=== PATIENT | female | born 1980 | race Caucasian/White ===

== ENCOUNTER 2016-07-26 09:34 | Emergency (ER) | payer MEDICAID ==
[~2016-07-26] VITALS: Ht 154.9 cm; Wt 88.5 kg
[2016-07-26 09:40] VITALS: BP 165/104
== END 2016-07-26 12:45 | disposition home or self-care (01) ==
LOC: ED 09:34
DX: S40.862A Insect bite (nonvenomous) of left upper arm, initial encounter (principal); S30.860A Insect bite (nonvenomous) of lower back and pelvis, initial encounter; I10 Essential (primary) hypertension; Z79.01 Long term (current) use of anticoagulants; W57.XXXA Bitten or stung by nonvenomous insect and other nonvenomous arthropods, initial encounter; Y93.89 Activity, other specified; Y99.8 Other external cause status; Y92.89 Other specified places as the place of occurrence of the external cause

== ENCOUNTER 2016-09-08 12:01 | Emergency (ER) | payer MEDICAID ==
[~2016-09-08] VITALS: Ht 154.9 cm; Wt 89.6 kg
[2016-09-08 12:11] VITALS: BP 163/93
== END 2016-09-08 14:01 | disposition home or self-care (01) ==
LOC: ED 12:01
DX: S91.332A Puncture wound without foreign body, left foot, initial encounter (principal); I10 Essential (primary) hypertension; Z79.899 Other long term (current) drug therapy; X58.XXXA Exposure to other specified factors, initial encounter; Y93.89 Activity, other specified; Y99.8 Other external cause status; Y92.89 Other specified places as the place of occurrence of the external cause
CPT/HCPCS: 90715

== ENCOUNTER 2016-09-26 16:17 | Emergency (ER) | payer MEDICAID ==
[2016-09-26 16:29] VITALS: BP 156/103
== END 2016-09-26 18:02 | disposition home or self-care (01) ==
LOC: ED 16:17
DX: S39.012A Strain of muscle, fascia and tendon of lower back, initial encounter (principal); I10 Essential (primary) hypertension; Z86.718 Personal history of other venous thrombosis and embolism; Z79.01 Long term (current) use of anticoagulants; X50.9XXA Other and unspecified overexertion or strenuous movements or postures, initial encounter; Y93.89 Activity, other specified; Y99.8 Other external cause status; Y92.89 Other specified places as the place of occurrence of the external cause
CPT/HCPCS: J1885

== ENCOUNTER 2017-02-13 12:47 | Emergency (ER) | payer MEDICAID ==
[2017-02-13 17:51] VITALS: BP 156/96
== END 2017-02-13 17:51 | disposition home or self-care (01) ==
LOC: ED 12:47
DX: M53.3 Sacrococcygeal disorders, not elsewhere classified (principal); I10 Essential (primary) hypertension; Z86.79 Personal history of other diseases of the circulatory system
CPT/HCPCS: J7512

== ENCOUNTER 2018-03-01 16:19 | Emergency (ER) | payer MEDICAID ==
[~2018-03-01] VITALS: Ht 154.9 cm; Wt 86.4 kg
[2018-03-01 17:15] LABS: BASOPHIL % 0.4 % (0-2); PLATELET COUNT 400 x10^3mcL (130-400)
[2018-03-01 17:21] LABS: CALCIUM 8.8 mg/dL (8.5-10.1); CARBON DIOXIDE 29.6 mmol/L (21-32); CREATININE SERUM 1.2 mg/dL (0.6-1.0); POTASSIUM SERUM 3.7 mmol/L (3.5-5.1)
[2018-03-01 17:25] LABS: RED CELL DISTRIBUTION WIDTH 14.7 % (11.5-14.5)
[2018-03-01 17:26] LABS: ALBUMIN 3.4 g/dL (3.4-5.0); BILIRUBIN TOTAL 0.2 mg/dL (0.20-1.00)
[2018-03-01 17:40] VITALS: BP 131/80
== END 2018-03-01 18:54 | disposition home or self-care (01) ==
LOC: ED 16:19
PROVIDERS: Emergency Medicine
DX: J20.9 Acute bronchitis, unspecified (principal); I10 Essential (primary) hypertension; Z90.721 Acquired absence of ovaries, unilateral
CPT/HCPCS: 85378; J1885; J7030; Q0092

== ENCOUNTER 2019-01-27 11:24 | Emergency (ER) | payer BC ==
[~2019-01-27] VITALS: Ht 154.9 cm; Wt 87.5 kg
[2019-01-27 11:34] VITALS: Ht 154.9 cm; Wt 87.5 kg
[2019-01-27 13:58] VITALS: BP 169/103
== END 2019-01-27 13:58 | disposition home or self-care (01) ==
LOC: ED 11:24
DX: J40 Bronchitis, not specified as acute or chronic (principal); Z98.890 Other specified postprocedural states
CPT/HCPCS: J7613; J7644; Q0092